=== PATIENT | male | born 1965 | race Caucasian/White ===

== ENCOUNTER 2021-11-15 07:13 | Outpatient (REF) | payer BC, SELFPAY ==
[2021-11-15 11:21] LABS: Appearance Urine Clear; Color Urine Yellow; Glucose Urine UA Negative (Negative); Leukocyte Esterase Urine Negative (Negative); Nitrite Urine Negative (Negative); Urine Blood Negative (Negative); Urine Ketones Negative (Negative); Urine Protein Negative (Neg-Trace)
[2021-11-15 12:07] LABS: Alanine Aminotransferase 23 U/L (0-40); Albumin Level 4.2 g/dL (3.5-5.0); Alkaline Phosphatase 47 U/L (39-117); Anion Gap 14 (12-20); Aspartate Amino Transferase 19 U/L (5-37); Bilirubin Total 1.2 mg/dL (0.0-1.0); Blood Urea Nitrogen 19 mg/dL (9-16); Calcium 8.9 mg/dL (8.4-10.2); Carbon Dioxide 23 mmol/L (22-29); Chloride 107 mmol/L (96-108); Cholesterol 201 mg/dL; Estimated Glomerular Filt Rate > 60; Glucose Fasting 113 mg/dL (60-99); HDL Cholesterol 60 mg/dL; LDL Cholesterol Calculated 128 mg/dl; Potassium 4.5 mmol/L (3.3-5.1); Sodium 139 mmol/L (135-145); Total Protein 6.7 g/dL (6.5-8.0); Triglycerides 67 mg/dL
[2021-11-15 12:13] LABS: Prostate Specific Antigen Scr 0.19 ng/mL (<0.05-4.0)
== END 2021-11-15 07:14 | disposition home or self-care (01) ==
LOC: HO.WFDLDS 07:13
PROVIDERS: Visit Provider Family Medicine
DX: Z00.00 Encounter for general adult medical examination without abnormal findings (principal); Z12.5 Encounter for screening for malignant neoplasm of prostate
CPT/HCPCS: 36415; 80053; 80061; 81003; 84153; 84443

== ENCOUNTER 2023-07-09 15:15 | Outpatient (AMB) | payer BC, SELFPAY ==
--- NOTE | 2023-07-09 15:18 | A.OFFPC_ITS ---
Vital Signs 07/09/23 15:22 Height 6 ft Weight 258 lb 6 oz BMI 35.0 BP 120/70 Blood Pressure Location Lt brachial Position Sitting Pulse 82 Pulse Source Pulse Oximeter Pulse Oximetry (%) 96 Oxygen Delivery Method Room Air Intake Visit Reasons: F/U HTN Intake Note: Patient is here to follow up on hypertension, and ringing in his ears, left ear feels blocked. Allergies No Known Allergies Allergy (Verified 07/09/23 15:23) Tobacco use date assessed: 07/09/23 Dental Screening Dental Screen Date: 07/09/23 Did you have a dental visit in the last 12 months?: No Did you have a dental problem in the last 6 months where you did not have access to dental care?: No Was dental information given to patient?: Patient declined HPI F/U HTN HPI Details 58 y/o male presents to f/u hypertension . Blood pressure today is 120/70. He is on lisinopril 10mg, HCTZ 25mg daily. Pt notes he continues to take sertraline 100mg for his mood. Pt reports increased anxiety. Pt reports L ear discomfort. PFSH Surgical History History of dental surgery Social History Housing: House Alcohol intake: current Alcohol intake frequency: a few times a week Patient Tobacco Use Status: Never used Tobacco e-Cigarette/Vaping Use: Never Used Second Hand Smoke Exposure: No service: No Current occupational status: employed Current occupational exposures/hazards: No Cognitive needs: No Hearing needs: No Vision needs: Yes (reading glasses) Questionnaire Thrive Questionnaire Date Thrive assessed: 03/20/22 LESTER-7 AMB Questionnaire LESTER-7 Date LESTER - 7 assessed: 03/20/22 Source: Developed by Drs. Javier Orozco, Kati Trevizo, Alonzo Wilkerson and colleagues, with an educational fab from [employer]. Review of Systems Const Denies chills, Denies fatigue, Denies fever(s), Denies headache(s) and Denies weakness ENT Denies dizziness and Denies headache(s) Card Denies dyspnea Resp Denies cough, Denies dyspnea, Denies wheezing and Denies other (shortness of breath) Musc Denies numbness and Denies tingling Neuro Denies dizziness, Denies headache(s), Denies numbness, Denies tingling and Den ies weakness Psych Reports anxiety and Denies depression Endo Denies fatigue Aller/Immun Denies wheezing Physical exam (Primary Care) Vital Signs: Last Vital Signs Pulse 82 07/09/23 15:22 BP 120/70 07/09/23 15:22 Pulse Ox 96 07/09/23 15:22 Oxygen Delivery Method Room Air 07/09/23 15:22 BMI result Body Mass Index 35.0 Tobacco/Smoking Status: Tobacco use Status Tobacco use date assessed 07/09/23 07/09/23 15:27 Patient Tobacco Use Status Never used Tobacco 07/09/23 15:18 e-Cigarette/Vaping Use Never Used 07/09/23 15:18 Thrive Assessment: Date of Thrive Assessment Date Thrive assessed 03/20/22 07/09/23 15:18 Const General: well developed; No acute distress Nutritional Appearance: well nourished Orientation/consciousness: patient oriented x3 HENMT Head: Yes normocephalic and Yes atraumatic Eyes General: appearance normal, both eyes and all related structures Pupils: Equal, round and reactive pupils present EOM: EOMs intact bilaterally Resp Effort & Inspection: normal respiratory effort Neuro General: patient oriented x3 and gait normal Cranial nerves: Yes Equal, round and reactive pupils present Psych Affect: normal affect Assessment and Plan Assessment & Plan (1) Hypertension: Code(s): I10 - Essential (primary) hypertension Plan: Blood?pressure?is?controlled.??Goal?is?less?than?140/90 Continue?current?medication (2) Left otitis media: Code(s): H66.92 - Otitis media, unspecified, left ear Plan: Start?amoxicillin (3) Anxiety: Code(s): F41.9 - Anxiety disorder, unspecified Plan: Worsened?lately.??Had?been?controlled?on?sertraline?100?mg?daily?and?he?is?still ?taking?this. Will?increase?sertraline?to?150?mg?daily (4) Right ear impacted cerumen: Code(s): H61.21 - Impacted cerumen, right ear Plan: Can?use?Debrox?drops Orders: Orders Comprehensive [place]. Panel Fast Today Z00.00 - Encounter for general adult medical examination without abnormal findings Prostate Specific Antigen Scr Today Z12.5 - Encounter for screening for malignant neoplasm of prostate TSH reflex Free T4 Today Z00.00 - Encounter for general adult medical examination without abnormal findings Complete Blood Count Auto Diff Today Z00.00 - Encounter for general adult medical examination without abnormal findings Lipid Panel Today Z00.00 - Encounter for general adult medical examination without abnormal findings Microalbumin, Random (w Creat) Today I10 - Essential (primary) hypertension UA and rflx microscopic Today Z00.00 - Encounter for general adult medical examination without abnormal findings Hemoglobin A1c Today R73.01 - Impaired fasting glucose Medications: New amoxicillin 500 mg PO Q12H 10 days 20 tabs 0RF carbamide peroxide 6.5% (Debrox) 5 drps otic (ear) right Q12H 4 days 15 mL 0RF Changed From sertraline 100 mg PO DAILY 30 days 30 tabs 1RF To sertraline 150 mg (1.5 x 100 mg) PO DAILY 30 days 45 tabs 1RF Coding Level of Care Code Est Pt Level 3 (74098) Diagnoses Hypertension I10 Left otitis media H66.92 Anxiety F41.9 Right ear impacted cerumen H61.21
[2023-07-09 15:22] VITALS: BP 120/70; PULSE 82; O2SAT 96; BMI 35.0
== END 2023-07-09 16:42 | disposition home or self-care (01) ==
PROVIDERS: PCP Family Medicine; Visit Provider Family Medicine
DX: I10 Essential (primary) hypertension (principal); H66.92 Otitis media, unspecified, left ear; F41.9 Anxiety disorder, unspecified; H61.21 Impacted cerumen, right ear
CPT/HCPCS: 99214

== ENCOUNTER 2024-08-17 13:45 | Outpatient (AMB) | payer BC, SELFPAY ==
--- NOTE | 2024-08-17 13:48 | A.OFFPC_ITS ---
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 Allergies No Known Allergies Allergy (Verified 08/17/24 13:53) Medication List - Last Reconciled 08/17/24 by Amie Aquino PA-C hydrochlorothiazide 25 mg PO DAILY 30 days lisinopril 10 mg PO DAILY sertraline 150 mg (1.5 x 100 mg) PO DAILY 30 days Tobacco use date assessed: 07/09/23 Dental Screening Dental Screen Date: 08/17/24 Did you have a dental visit in the last 12 months?: No Did you have a dental problem in the last 6 months where you did not have access to dental care?: No Was dental information given to patient?: Patient has dentist HPI CPE HPI Details Patient is a 59-year-old male with a significant past medical history urinary frequency, anxiety, impaired fasting glucose, hypertension presenting today for a physical exam. He normally follows with Dr. Pierre. He does have a few concerns today. CV: Blood pressure today in the office is 138/98. Denies any chest pain or shortness on breath. He is supposed to be taking lisinopril 10 mg and hydrochlorothiazide 25 mg daily. He says recently he ran into issues where he was not able to be on both medications until today. He states his blood pressures have always been normal while taking this regimen. -he states that he does have a concerned because he has had 2 episodes of syncope since February. He states that the 1st episode he was sick and had some sort of chest cold. He he says that he got up off the couch and then just lost consciousness. He woke up a few minutes later on the floor. He did not go to the hospital. He did hit his head. This was not witnessed. Denies any incontinence with this. He states that he assume that this was just related to being sick but then it happened again a couple of months ago. He states that he was in [place] at a golf [place] when he felt a little weird all day. He states that he just felt off. He walked to the parking lot and collapsed in the parking lot. He states that he was again unconscious for a short time and he did have an EKG and went to the hospital. He was not admitted. He states that they did labs and told him that it was likely related to dehydration. He had drank a few beers that day but did not think he was particularly dehydrated. He has not had any reoccurrence of symptoms. He states both times he felt that he did not have many prodromal symptoms to this. He says it happened pretty quickly. No palpitations, chest pain or shortness on breath with it. No nausea or diaphoresis until afterwards. He says that he does sometimes get palpitations but it is usually related to caffeine intake. He states he does have a family history of heart disease with his mother. Psych: He is currently on sertraline 150 mg daily. States that it is 4 anxiety and he just does not feel like it is effective. He states that he constantly worries and thinks about things. He denies any SI/HI. No recent big changes. Previously tried citalopram which was also ineffective. Derm: He has noticed a couple new brown spots on his face and would like to see Dermatology. Colonoscopy: never had, does not want this but would be open to a colonoscopy. PSA: Overdue [facility] Surgical History History of dental surgery Social History (Updated 08/17/24 @ 14:00 by Chiqui Wooten CMA) Housing: House Alcohol intake: current Alcohol intake frequency: a few times a week Patient Tobacco Use Status: Former Tobacco user Cigarettes Per Day: 3 Years Smoked: 2 e-Cigarette/Vaping Use: Never Used Second Hand Smoke Exposure: No service: No Current occupational status: employed Current occupation: wedding planner Current occupational exposures/hazards: No Cognitive needs: No Hearing needs: No Vision needs: Yes (reading glasses) Questionnaire PHQ-9 Over the last 2 weeks, how often have you been bothered by any of the following problems? 1. Little interest or pleasure in doing things: not at all 2. Feeling down, depressed, or hopeless: not at all 3. Trouble falling or staying asleep, or sleeping too much: not at all 4. Feeling tired or having little energy: more than half the days 5. Poor appetite or overeating: more than half the days 6. Feeling bad about yourself - or that you are a failure or have let yourself or your family down: more than half the days 7. Trouble concentrating on things, such as reading the newspaper or watching television: not at all 8. Moving or speaking so slowly that other people could have noticed. Or the opposite - being so fidgety or restless that you have been moving around a lot more than usual: not at all 9. Thoughts that you would be better off or of hurting yourself in some way: not at all Total score: 6 Depression Screening Interpretation: Positive Depression Screening Follow-up: In treatment and New Medication prescribed Depression Screening Done: Yes 83916 - PHQ-9 Billing: Yes Source: Developed by Drs. Javier Orozco, Kati Trevizo, Alonzo Wilkerson and colleagues, with an educational fab from [employer]. Thrive Questionnaire Date Thrive assessed: 08/17/24 I am a: Patient What is your living situation today?: I have a steady place to live Within the past 12 months, did the food you bought not last and you didn't have the money to get more?: Often true Within the past 12 months, did you worry whether your food would run out before you got money to buy more?: Never true Do you have trouble paying for medicines?: No Do you have trouble getting transportation to medical appointments?: No Do you have trouble paying your heating and electricity bill?: No Do you have trouble taking care of your child, family member or friend?: No Do you have trouble with day-to-day activities such as bathing, preparing meals, shopping, managing finances, etc.?: No Are you currently unemployed and looking for a job?: No Are you interested in more education?: No Please select the resources that you would like help with: None Currently or been in a relationship where the following occur: No concerns reported THRIVE Score: 1 AUDIT C Alcohol Use Questionnaire (AUDIT-C) 1. How often do you have a drink containing alcohol?: 4 or more times a week 2. How many drinks containing alcohol do you have on a typical day when you are drinking?: 3 or 4 3. How often do you have six or more drinks on one occasion?: Less than monthly Total Score: 6 LESTER-7 AMB Questionnaire LESTER-7 Date LESTER - 7 assessed: 08/17/24 Feeling nervous, anxious, or on edge: 2 = More than half the days Not being able to stop or control worryin = Not at all Worrying too much about different things: 1 = Several days Trouble relaxin = Not at all Being so restless that it is hard to sit still: 0 = Not at all Becoming easily annoyed or irritable: 0 = Not at all Feeling afraid as if something awful might happen: 0 = Not at all Total LESTER-7 score (0-4 normal; 5-9 mild; 10-14 moderate; 15-21 severe): 3 Source: Developed by Drs. Javier Orozco, Kati Trevizo, Alonzo Wilkerson and colleagues, with an educational fab from [employer]. LESTER-7 Assessment Billing LESTER-7 Assessment Tool: LESTER-7 Assessment 01320 Physical exam (Primary Care) Vital Signs: Last Vital Signs Pulse 66 08/17/24 13:55 Resp 16 08/17/24 13:55 BP 138/98 H 08/17/24 14:01 Pulse Ox 94 08/17/24 13:55 Oxygen Delivery Method Room Air 08/17/24 13:55 BMI result Body Mass Index 35.4 Tobacco/Smoking Status: Tobacco use Status Tobacco use date assessed 07/09/23 08/17/24 13:49 Patient Tobacco Use Status Former Tobacco user 08/17/24 14:00 e-Cigarette/Vaping Use Never Used 08/17/24 14:00 PHQ-9: PHQ-9 Score PHQ-9: Total score 6 08/17/24 14:00 Depression Screening Interpretation: Positive Depression Screening Follow-up: In treatment and New Medication prescribed Thrive Assessment: Date of Thrive Assessment Date Thrive assessed 08/17/24 08/17/24 14:00 Currently or been in a relationship where the following occur: No concerns repo rted Const Orientation/consciousness: patient oriented x3 HENMT Ears: hearing grossly normal bilaterally and TM's normal bilaterally General nose exam: No nasal polyps present Face and sinus: Yes sinuses nontender Mouth: Normal oral and palatal mucosa present Eyes Pupils: Equal, round and reactive pupils present EOM: EOMs intact bilaterally Neck Neck: Yes full ROM and Yes no lymphadenopathy Thyroid: Thyroid normal Chest Chest palpation & inspection: normal inspection of the chest Resp Auscultation: clear to auscultation bilaterally Cardio Rate: regular rate Rhythm: regular rhythm Heart sounds: S1 normal heart sound present and S2 normal heart sound present Peripheral pulses: Peripheral pulses 2+ throughout GI Other: Soft, nontender Auscultation: normal bowel sounds Rectal Exam - Male: Yes deferred General: Yes no CVA tenderness Back/Spine/Pelvis Other: Nontender Back: no CVA tenderness Skin General skin exam: no rashes or lesions noted Neuro General: patient oriented x3, gait normal, CN's II-XI intact bilaterally and deep tendon reflexes 2+ bilaterally Cranial nerves: Yes Equal, round and reactive pupils present Motor exam (neuro): 5/5 motor strength present throughout Sensory Exam: double simultaneous stimulation for sensation normal Coordination: [id number] test normal and Romberg test negative Extrem General: Yes normal to inspection and Yes full ROM Psych Affect: normal affect Attitude: cooperative Thought process: Normal thought process present Thought content: Normal thought content present Insight: Good insight present (Psych) Judgement: Good judgement present (Psych) Office Procedures EKG Details: EKG today in office is normal sinus rhythm at a rate of 65 beats per minute with nonspecific STT wave abnormalities. No prior study to compare. EKG interpreted by myself and Dr. Michaud. [id number], Complete Coding Level of Care Code Est Pt Level 3 (48678) Est Pt Prev Care 40-64y(92264) Diagnoses Routine general medical examination at a health care facility Z00.00 Facial lesion L98.9 Syncope and collapse R55 Hypertension I10 Anxiety F41.9 CPT Codes EKG - CPT: 51400-[id number], Complete ([id number]) Additional Codes LESTER-7 Assessment Billing - LESTER-7 Assessment Tool: LESTER-7 Assessment 31348 ([id number]) PHQ-9 - 39730 - PHQ-9 Billing: Yes ([id number]) Assessment & Plan Assessment & Plan (1) Routine general medical examination at a health care facility: Code(s): Z00.00 - Encounter for general adult medical examination without abnormal findings Plan: Health maintenance reviewed. Labs ordered today. Cologuard ordered. (2) Facial lesion: Code(s): L98.9 - Disorder of the skin and subcutaneous tissue, unspecified Category: Medical Plan: Referral to [facility] (3) Syncope and collapse: Code(s): R55 - Syncope and collapse Category: Medical Plan: EKG today in the office is normal sinus rhythm at a rate of 65 beats per minute with nonspecific STT wave abnormalities. No prior study to compare. EKG interpreted myself. Holter monitor and echo ordered. Carotid ultrasound ordered. We will follow up pending test results. Labs ordered. Offered referral to Cardiology but wants to wait until part of the workup is done. (4) Hypertension: Code(s): I10 - Essential (primary) hypertension Category: Medical Plan: Elevated today. Return in 2 weeks for recheck once he is taking both medications. (5) Anxiety: Code(s): F41.9 - Anxiety disorder, unspecified Category: Medical Plan: We will start BuSpar. Discussed risks and benefits and adverse effects of this medication. Reduce the sertraline to 100 mg. Orders: Orders Hemoglobin A1c Today F41.9 - Anxiety disorder, unspecified, I10 - Essential (primary) hypertension, L98.9 - Disorder of the skin and subcutaneous tissue, unspecified, R55 - Syncope and collapse, R73.01 - Impaired fasting glucose TSH reflex Free T4 Today F41.9 - Anxiety disorder, unspecified, I10 - Essential (primary) hypertension, L98.9 - Disorder of the skin and subcutaneous tissue, unspecified, R55 - Syncope and collapse UA CC w/rflx Micro + Cult Today F41.9 - Anxiety disorder, unspecified, I10 - Essential (primary) hypertension, L98.9 - Disorder of the skin and subcutaneous tissue, unspecified, R55 - Syncope and collapse, Z13.220 - Encounter for screening for lipoid disorders US carotid duplex BI Today I10 - Essential (primary) hypertension, R00.2 - Palpitations, R55 - Syncope and collapse CA echo transthoracic complete Today I10 - Essential (primary) hypertension, R55 - Syncope and collapse ECG 14 day holter monitor Today R55 - Syncope and collapse AMB EKG-In Office Today R55 - Syncope and collapse, Z13.6 - Encounter for screening for cardiovascular disorders Complete Blood Count Auto Diff Today F41.9 - Anxiety disorder, unspecified, I10 - Essential (primary) hypertension, L98.9 - Disorder of the skin and subcutaneous tissue, unspecified, R55 - Syncope and collapse Comprehensive [place]. Panel Fast Today F41.9 - Anxiety disorder, unspecified, I10 - Essential (primary) hypertension, L98.9 - Disorder of the skin and subcutaneous tissue, unspecified, R55 - Syncope and collapse Lipid Panel Today F41.9 - Anxiety disorder, unspecified, I10 - Essential (primary) hypertension, L98.9 - Disorder of the skin and subcutaneous tissue, unspecified, R55 - Syncope and collapse Prostate Specific Antigen Scr Today F41.9 - Anxiety disorder, unspecified, I10 - Essential (primary) hypertension, L98.9 - Disorder of the skin and subcutaneous tissue, unspecified, R55 - Syncope and collapse, Z01.89 - Encounter for other specified special examinations Referrals Dermatology Referral L98.9 - Disorder of the skin and subcutaneous tissue, unspecified Cologuard Test Z12.11 - Encounter for screening for malignant neoplasm of colo n Medications: New buspirone 5 mg PO BID 60 tabs 2RF Changed From sertraline 150 mg (1.5 x 100 mg) PO DAILY 30 days 45 tabs 1RF To sertraline 100 mg PO DAILY 30 days 30 tabs 1RF
[2024-08-17 13:55] VITALS: BP 144/96; PULSE 66; RESP 16; O2SAT 94; BMI 35.4
[2024-08-17 14:01] VITALS: BP 138/98
== END 2024-08-17 15:13 | disposition home or self-care (01) ==
LOC: HO.HMCFM 13:46
PROVIDERS: PCP Family Medicine; Visit Provider Physician Assistant
DX: Z00.00 Encounter for general adult medical examination without abnormal findings (principal); L98.9 Disorder of the skin and subcutaneous tissue, unspecified; R55 Syncope and collapse; I10 Essential (primary) hypertension; F41.9 Anxiety disorder, unspecified

== ENCOUNTER → 2024-08-17 13:45 | Outpatient (BNVA) | payer BC, SELFPAY | PROVIDERS: PCP Family Medicine; Visit Provider Physician Assistant | DX: Z00.00 Encounter for general adult medical examination without abnormal findings (principal); R32 Unspecified urinary incontinence; F41.9 Anxiety disorder, unspecified; R73.01 Impaired fasting glucose; I10 Essential (primary) hypertension; L98.9 Disorder of the skin and subcutaneous tissue, unspecified; R55 Syncope and collapse | CPT/HCPCS: 93005; 96127 ==

== ENCOUNTER 2024-08-22 14:38 | Outpatient (REF) | payer BC, SELFPAY ==
[2024-08-22 17:38] LABS: MANUAL DIFF FLAG NO
[2024-08-22 17:49] LABS: Basophils Absolute Auto 0.1 X10*3/uL (0.0-0.2); Basophils Percent Auto 1.3 % (0-2); Eosinophils Absolute Auto 0.2 X10*3/uL (0.0-0.4); Hematocrit 45.9 % (42.0-52.0); Hemoglobin 16.1 g/dl (14.0-18.0); Imm Gran Abs Auto 0.01 X10*3/uL (0.00-0.03); Imm Gran Pct Auto 0.2 % (0.0-0.4); Lymphocytes Absolute Auto 1.9 X10*3/uL (1.2-4.9); Lymphocytes Percent Auto 29.6 % (20-40); Mean Corpuscular HGB Conc 35.1 g/dl (31.0-36.0); Mean Corpuscular Hemoglobin 29.8 pg (27.0-33.0); Mean Corpuscular Volume 84.8 fL (80.0-98.0); Mean Platelet Volume 11.6 fL (9.4-12.4); Monocytes Absolute Auto 0.6 X10*3/uL (0.1-1.2); Neutrophils Absolute Auto 3.6 x10*3/uL (2.0-8.3); Neutrophils Percent Auto 56.9 % (45-73); Platelet Count 186 X10*3/uL (160-400); Red Blood Count 5.41 X10*6/uL (4.60-5.80); Red Cell Distribution Width 12.1 % (11.0-16.0); White Blood Count 6.3 X10*3/uL (4.8-10.8)
[2024-08-22 17:53] LABS: Appearance Urine Clear; Color Urine Yellow; Glucose Urine UA Negative (Negative); Leukocyte Esterase Urine Negative (Negative); Nitrite Urine Negative (Negative); PH 7.5 (5.0-9.0); Specific Gravity - Urine 1.015 (1.005-1.025); Urine Blood Negative (Negative); Urine Ketones Negative (Negative); Urine Protein Negative (Neg-Trace)
[2024-08-22 18:13] LABS: Alanine Aminotransferase 32 U/L (0-40); Albumin Level 4.7 g/dL (3.5-5.0); Alkaline Phosphatase 47 U/L (39-117); Anion Gap 11 (12-20); Aspartate Amino Transferase 27 U/L (5-37); Bilirubin Total 1.6 mg/dL (0.0-1.0); Blood Urea Nitrogen 14 mg/dL (9-16); Calcium 9.2 mg/dL (8.4-10.2); Carbon Dioxide 27 mmol/L (22-29); Chloride 103 mmol/L (96-108); Cholesterol 232 mg/dL (<200); Estimated Glomerular Filt Rate > 60; Glucose Fasting 89 mg/dL (60-99); HDL Cholesterol 56 mg/dL (>40); LDL Cholesterol Calculated 153 mg/dL (<100); Potassium 3.7 mmol/L (3.3-5.1); Sodium 137 mmol/L (135-145); Total Protein 7.4 g/dL (6.5-8.0); Triglycerides 115 mg/dL (<150)
[2024-08-22 18:16] LABS: TSH reflex Free T4 1.71 uIU/mL (0.32-4.0)
[2024-08-22 18:17] LABS: Prostate Specific Antigen Scr 0.27 ng/mL (<0.05-4.0)
[2024-08-23 07:07] LABS: Estimated Average Glucose 111 mg/dL; Hemoglobin A1c % 5.5 % (<6.0)
== END 2024-08-22 14:39 | disposition home or self-care (01) ==
LOC: HO.WFDLDS 14:38
PROVIDERS: Visit Provider Physician Assistant
DX: Z01.89 Encounter for other specified special examinations (principal); R73.01 Impaired fasting glucose; Z13.220 Encounter for screening for lipoid disorders; F41.9 Anxiety disorder, unspecified; L98.9 Disorder of the skin and subcutaneous tissue, unspecified; R55 Syncope and collapse; I10 Essential (primary) hypertension; Z12.5 Encounter for screening for malignant neoplasm of prostate
CPT/HCPCS: 36415; 80053; 80061; 81003; 83036; 84153; 84443; 85025

== ENCOUNTER 2024-09-01 14:38 | Outpatient (AMB) | payer BC, SELFPAY ==
[2024-09-01 14:53] VITALS: BP 136/96; PULSE 71; RESP 16; TEMP 36.6; O2SAT 94; BMI 34.9
--- NOTE | 2024-09-01 14:53 | A.OFFPC_ITS ---
Vital Signs 09/01/24 14:53 09/01/24 15:05 Height 6 ft Weight 257 lb BMI 34.9 BP 136/96 H 130/88 Blood Pressure Location Lt brachial Lt brachial Position Sitting Sitting Respiration 16 Pulse 71 Pulse Source Pulse Oximeter Temp 97.9 F Temp Source Oral Pulse Oximetry (%) 94 Oxygen Delivery Method Room Air Intake Visit Reasons: bp and labs Intake Note: Follow up blood pressure, labs results Air Marshal Required: No Allergies No Known Allergies Allergy (Verified 09/01/24 14:54) Tobacco use date assessed: 09/01/24 Dental Screening Dental Screen Date: 08/17/24 HPI bp and labs HPI Details Patient is a 59-year-old male with a significant past medical history urinary frequency, anxiety, impaired fasting glucose, hypertension presenting today for a followup. He normally follows with Dr. Pierre. CV: Blood pressure today in the office is 130/88. Recently has been more consistent with hydrochlorothiazide 25 mg and lisinopril 10 mg. -he Is scheduled in the next couple luli lianna for his cardiac testing. He states he does have a family history of heart disease with his mother. Psych: He had a med change at our last visit in his currently on sertraline 100 mg daily and buspirone 5 mg twice a day. He finds that the buspirone is drying him out and he also feels that the medication combination is making him more irritable. He has not noticed a change in his anxiety. He denies any SI/HI. No recent big changes. Previously tried citalopram which was also ineffective. [facility] Surgical History History of dental surgery Social History (Updated 08/17/24 @ 14:00 by Chiqui Wooten CMA) Housing: House Alcohol intake: current Alcohol intake frequency: a few times a week Patient Tobacco Use Status: Former Tobacco user Cigarettes Per Day: 3 Years Smoked: 2 e-Cigarette/Vaping Use: Never Used Second Hand Smoke Exposure: No service: No Current occupational status: employed Current occupation: transportation manager Current occupational exposures/hazards: No Cognitive needs: No Hearing needs: No Vision needs: Yes (reading glasses) Questionnaire Thrive Questionnaire Date Thrive assessed: 08/17/24 I am a: Patient What is your living situation today?: I have a steady place to live Within the past 12 months, did the food you bought not last and you didn't have the money to get more?: Often true Within the past 12 months, did you worry whether your food would run out before you got money to buy more?: Never true Do you have trouble paying for medicines?: No Do you have trouble getting transportation to medical appointments?: No Do you have trouble paying your heating and electricity bill?: No Do you have trouble taking care of your child, family member or friend?: No Do you have trouble with day-to-day activities such as bathing, preparing meals, shopping, managing finances, etc.?: No Are you currently unemployed and looking for a job?: No Are you interested in more education?: No Please select the resources that you would like help with: None Currently or been in a relationship where the following occur: No concerns reported THRIVE Score: 1 AUDIT C Alcohol Use Questionnaire (AUDIT-C) 1. How often do you have a drink containing alcohol?: 4 or more times a week 2. How many drinks containing alcohol do you have on a typical day when you are drinking?: 1 or 2 3. How often do you have six or more drinks on one occasion?: Never Total Score: 4 LESTER-7 AMB Questionnaire LESTER-7 Date LESTER - 7 assessed: 08/17/24 Source: Developed by Drs. Javier Orozco, Kati Trevizo, Alonzo Wilkerson and colleagues, with an educational fab from [employer]. Physical exam (Primary Care) Vital Signs: Last Vital Signs Temp 97.9 F 09/01/24 14:53 Pulse 71 09/01/24 14:53 Resp 16 09/01/24 14:53 BP 130/88 09/01/24 15:05 Pulse Ox 94 09/01/24 14:53 Oxygen Delivery Method Room Air 09/01/24 14:53 BMI result Body Mass Index 34.9 Tobacco/Smoking Status: Tobacco use Status Tobacco use date assessed 09/01/24 09/01/24 14:59 Patient Tobacco Use Status Former Tobacco user 09/01/24 14:59 e-Cigarette/Vaping Use Never Used 09/01/24 14:59 Thrive Assessment: Date of Thrive Assessment Date Thrive assessed 06/04/25 06/19/25 14:59 Currently or been in a relationship where the following occur: No concerns reported Const Orientation/consciousness: patient oriented x3 HENMT Ears: hearing grossly normal bilaterally Neck Thyroid: Thyroid normal Lymphatic: no lymphadenopathy noted Resp Auscultation: clear to auscultation bilaterally Cardio Rate: regular rate Rhythm: regular rhythm Heart sounds: S1 normal heart sound present and S2 normal heart sound present GI Inspection: Yes normal to inspection Palpation (GI): Soft to palpation and Other GI palpation findings present (nontender, no cva tenderness) Auscultation: normoactive bowel sounds Rectal Exam - Male: Yes deferred Skin General skin exam: no rashes or lesions noted Neuro General: patient oriented x3, gait normal and no focal motor deficits Results Reviewed Results Reviewed: Laboratory Tests 08/22/24 14:41 WBC 6.3 RBC 5.41 Hgb 16.1 Hct 45.9 Plt Count 186 Sodium 137 Potassium 3.7 Chloride 103 Carbon Dioxide 27 Anion Gap 11 L BUN 14 Creatinine 1.05 Estimated GFR > 60 Fasting Glucose 89 Hemoglobin A1c % 5.5 Calcium 9.2 Total Bilirubin 1.6 H AST 27 ALT 32 Alkaline Phosphatase 47 Total Protein 7.4 Albumin 4.7 Triglycerides 115 Cholesterol 232 H LDL Cholesterol, Calc 153 H HDL Cholesterol 56 PSA Screen 0.27 TSH 1.71 Coding Level of Care Code Est Pt Level 4 (40495) Complex EM visit Add On G2211 Diagnoses Hypertension I10 Anxiety F41.9 Elevated bilirubin R17 Dyslipidemia E78.5 Fatigue R53.83 Assessment & Plan Assessment & Plan (1) Hypertension: Code(s): I10 - Essential (primary) hypertension Category: Medical Plan: Increase lisinopril to 20 mg. Continue with the hydrochlorothiazide 25 mg. Has a cuff at home with his daughter. Advised to monitor blood pressures. Return in 4-6 weeks to be reassessed. Labs prior to appointment. (2) Anxiety: Code(s): F41.9 - Anxiety disorder, unspecified Category: Medical Plan: We will try Lexapro. Discussed risks and benefits and adverse effects of this medication. (3) Elevated bilirubin: Code(s): R17 - Unspecified jaundice Category: Medical Plan: We will recheck prior to next appointment. Ultrasound ordered. (4) Dyslipidemia: Code(s): E78.5 - Hyperlipidemia, unspecified Category: Medical Plan: Discussed diet changes. We will monitor. (5) Fatigue: Code(s): R53.83 - Other fatigue Plan: Sleep study ordered. Orders: Orders Basic Metabolic Panel Today F41.9 - Anxiety disorder, unspecified, I10 - Essential (primary) hypertension, R17 - Unspecified jaundice RT home sleep study 09/01/24 R06.81 - Apnea, not elsewhere classified Liver Panel Today F41.9 - Anxiety disorder, unspecified, I10 - Essential (primary) hypertension, R17 - Unspecified jaundice Complete Blood Count Auto Diff Today F41.9 - Anxiety disorder, unspecified, I10 - Essential (primary) hypertension, R17 - Unspecified jaundice Medications: New lisinopril 20 mg PO DAILY 90 tabs 2RF escitalopram oxalate (Lexapro) 10 mg PO DAILY 30 tabs 3RF Discontinued sertraline Discontinued Reason: Doctor's Order 100 mg PO DAILY 30 days 30 tabs 1RF lisinopril Discontinued Reason: Doctor's Order 10 mg PO DAILY 30 tabs 0RF buspirone Discontinued Reason: Doctor's Order 5 mg PO BID 60 tabs 2RF
[2024-09-01 15:05] VITALS: BP 130/88
== END 2024-09-01 15:33 | disposition home or self-care (01) ==
LOC: HO.HMCFM 14:39
PROVIDERS: PCP Family Medicine; Visit Provider Physician Assistant
DX: I10 Essential (primary) hypertension (principal); F41.9 Anxiety disorder, unspecified; R17 Unspecified jaundice; E78.5 Hyperlipidemia, unspecified; R53.83 Other fatigue

== ENCOUNTER → 2024-09-01 14:38 | Outpatient (BNVA) | payer BC, SELFPAY | PROVIDERS: PCP Family Medicine; Visit Provider Physician Assistant ==

== ENCOUNTER → 2024-10-03 13:31 | Outpatient (REF) | payer BC, SELFPAY ==
--- NOTE | 2024-10-03 13:34 | CA_ITS ---
Transthoracic Echocardiogram Patient (Last, First, Middle): Antwan Delgado, Gender: Male Date of : 1965 Age: 59 Procedure Date: 10/03/2024 Procedure Type: Transthoracic Echocardiogram Location: OP Height: 182.88 cm Weight: 111.13 kg BSA: 2.32 m2 Heart Rate: bpm BP: 130 / 80 mmHg Proof Operator: STEPHANY Referring MD: Amie Aquino PA-C Symptoms: R55 - Syncope and collapse Study Quality: Adequate ECG Rhythm: Sinus Conclusions: - The left ventricular systolic function is normal. The visually estimated ejection fraction is between 55-60%. - No obvious valvular pathology seen on this study. Findings Left Ventricle Normal left ventricular cavity size. There is normal left ventricular wall thickness. The left ventricular systolic function is normal. The visually estimated ejection fraction is between 55-60%. There is no evidence of regional wall motion abnormalities. Diastolic function is normal for age. Right Ventricle Mildly increased right ventricular cavity size. There is normal right ventricular systolic function. Atria Both atria are normal in size. Aortic Valve There is a normal trileaflet aortic valve. There is mild calcification of the aortic valve. There is no aortic valve stenosis. There is no aortic valve regurgitation. Mitral Valve The mitral valve appears normal. There is no mitral valve regurgitation. There is no mitral valve stenosis. Pulmonic Valve There is trace pulmonic valve regurgitation. Tricuspid Valve Normal tricuspid valve structure. There is trace tricuspid valve regurgitation. There is no evidence of pulmonary hypertension. Great Vessels The asc aorta is normal in size. Venous The inferior vena cava is normal in size and collapses greater than 50% with inspiration. Pericardium/Pleural There is no evidence of pericardial effusion. Prior Study Comparison No prior study available for comparison. Recommendations, Care & Conclusions No obvious valvular pathology seen on this study. Measurements 2D Linear Measurements IVSd: 1.17 0.6-0.9/0.6-1.0 cm LVIDd: 5.09 3.9-5.3/4.2-5.9 cm LVIDd Index: 2.19 2.4-3.2/2.2-3.1 cm/m2 LVIDs: 3.08 2.0-3.6 cm LVPWd: 1.00 0.7-1.1 cm LA Diam: 3.90 2.7-3.8/3.0-4.0 cm LAIDs Index: 1.68 1.5-2.3 cm/m2 LV Mass: 260.82 67-162/88-224 g LV Mass Index: 112.42 43-95/49-115 g/m2 LVOT Diam: 2.20 3.0+(-)1.3 cm 2D Systolic Function EF 4C: 57.50 >55% EF 2C: 54.10 >55% Mitral Valve MV Pk E: 0.49 MV PK A: 0.53 MV Decel Time: 248.00 E/A: 0.90 E'Lateral: 7.07 E'Medial: 5.44 E/E' Med: 9.00 E/E' Lat: 6.90 PHT: 73.00 MVA PHT: 3.01 Decel Dane: 1.97 Aortic Valve AoV Pk Torsten: 1.34 AoV Mn Torsten: 0.89 AoV VTI: 0.25 AoV Pk Grad: 7.00 Aov Mn Grad: 4.00 LUPILLO Cont.VTI: 3.12 LVOT LVOT Pk Torsten: 1.10 LVOT Mn Torsten: 0.69 LVOT VTI: 0.20 LVOT Pk Grad: 5.00 LVOT Mn Grad: 2.00 LVOT Diam: 2.20 LVOT Area: 3.80 Diastolic Function MV Pk E: 0.49 MV Pk A: 0.53 E/A: 0.90 E'Medial: 5.44 E/E' Med: 9.00 E' Laterial: 7.07 E/E' Lat: 6.90 Right Ventricle TAPSE (mm): 29.50 TVS' Torsten: 15.30 Tricuspid Valve TR Pk Torsten: 1.96 TR Pk Grad: 15.00 RA Press: 3.00 RVSP: 18.00 Great Vessels Aorta Sinus of Valsalva: 3.47 2.0-3.5 cm Ao Asc: 3.90 2.1-3.4 cm Updated in Other Vendor System with Status of Final Logan Martinez MD electronically signed on 10/04/2024 9:54:57 AM with status of Final
== END ==
LOC: HO.CARD 13:31
PROVIDERS: PCP Family Medicine; Visit Provider Physician Assistant
DX: I10 Essential (primary) hypertension (principal); R55 Syncope and collapse
CPT/HCPCS: 93246; 93306

== ENCOUNTER → 2024-10-03 13:34 | Outpatient (BNV) | payer BC, SELFPAY | PROVIDERS: PCP Family Medicine; Visit Provider Internal Medicine | DX: I35.8 Other nonrheumatic aortic valve disorders (principal) | CPT/HCPCS: 93306 ==

== ENCOUNTER 2024-10-20 08:22 | Outpatient (REF) | payer BC, SELFPAY ==
--- NOTE | ~2024-10-20 | US_ITS ---
CLINICAL HISTORY: R00.2 - Palpitations US bilateral carotid duplex Comparison: None provided Findings: No significant plaque within the common carotid arteries. No significant plaque within the carotid bulbs. Waveforms are normal morphology. Peak systolic velocities: Right CCA: 68 cm/s Right ICA: 93 cm/s ICA/CCA ratio: 0.68 Right ECA: Unremarkable Right vertebral and subclavian artery flow antegrade. Left CCA: 93 cm/s Left ICA: 105 cm/s ICA/CCA ratio: 0.73 Left ECA: Unremarkable Left vertebral and subclavian artery flow antegrade. Incidental note of the morphologically benign-appearing lymph node with preserved fatty hilum 1.3 x 0.5 x 1.0 cm near right carotid bulb. Impression: Normal carotid velocities, no significant stenosis (0-49% stenosis) This document has been electronically signed by: Nehal Huggins MD on 10/20/2024 14:52:06
--- NOTE | ~2024-10-20 | US_ITS ---
EXAMINATION: US ABDOMEN COMPLETE WITH LIVER ELASTOGRAPHY HISTORY: R79.89 - Other specified abnormal findings of blood chemistry TECHNIQUE: Real-time grayscale ultrasound imaging of the abdomen was performed and images were reviewed. COMPARISON: There are no prior studies available for comparison. FINDINGS: Liver: The right lobe of the liver measures 17.2 cm in size. The left lobe of the liver measures 10.4 cm in size. The liver demonstrates heterogeneously increased echotexture, consistent with steatosis. No focal mass or intrahepatic biliary ductal dilatation is identified. There is normal hepatopedal flow in the portal vein. Ultrasound elastography of the liver was performed with 10 separate measurements of the liver parenchyma with the patient in the supine position. Measurements were obtained approximately 2 cm below Todd's capsule and perpendicular to the capsule. The median shear wave velocity is 1.95 m/s. The interquartile range/median (IQR/median) is 0.09. Gallbladder and biliary tree: The gallbladder is unremarkable, without evidence of calculi, wall thickening, or pericholecystic fluid. There is no sonographic Talavera sign. The common bile duct is normal in caliber measuring 4 mm. Kidneys: The right kidney measures 10.7 cm in length. The left kidney measures 10.8 cm in length. The kidneys are unremarkable, without evidence of masses, hydronephrosis, or calculi. Pancreas: The pancreatic head, neck, and body are unremarkable. The pancreatic tail is obscured by bowel gas. Spleen: The spleen is normal in size and contour, measuring 16.4 cm in length. Abdominal aorta and inferior vena cava: The visualized portions of the abdominal aorta and inferior vena cava are normal in caliber. There is no free fluid in the abdomen. US/US abdomen comp w elastography IMPRESSION: Hepatosplenomegaly and hepatic steatosis. The median shear wave velocity in the liver is 1.95 m/s, corresponding to a median liver stiffness of 11.75 kPa. The IQR/median value is 0.09. This is indicative of a quality data set. Findings are indicative of a high elastography value suggestive of compensated advanced chronic liver disease. REFERENCE: Society of Radiologists in Ultrasound Liver Stiffness Thresholds (2020): LIVER STIFFNESS THRESHOLDS: *Shear wave velocity less than 1.3 m/s (Liver Stiffness equal or less than 5 kPa): High probability of being normal. *Shear wave velocity less than 1.7 m/s (Liver Stiffness less than 9 kPa): In the absence of other known clinical signs, rules out compensated advanced chronic liver disease. *Shear wave velocity between 1.7-2.1 m/s (Liver Stiffness 9-13 kPa): Suggestive of compensated advanced chronic liver disease but need further test for confirmation. *Shear wave velocity between 2.1-2.4 m/s (Liver Stiffness 13-17 kPa): Rules in compensated advanced chronic liver disease. *Shear wave velocity greater than 2.4 m/s (Liver Stiffness over 17 kPa): Suggestive of clinically significant portal hypertension. QUALITY OF DATA SET: *IQR/Median value equal or less than 0.15 implies a quality data set. *IQR/Median value over 0.15 implies a poor quality data set. SIGNIFICANT CHANGE FROM PRIOR EXAM: Significant change if liver stiffness measurement is 10% or greater from prior exam. OTHER CONSIDERATIONS: The stage of liver fibrosis may be overestimated in the setting of acute hepatitis, liver inflammation, elevated liver function tests, hepatic vascular congestion, obstructive cholestasis, non-fasting state, and infiltrative diseases such as amyloidosis and lymphoma. In some patients with NAFLD, the liver stiffness thresholds for compensated advanced chronic liver disease may be lower. In causes other than viral hepatitis and NAFLD, liver stiffness thresholds are not well established. Electronically signed by: Javier Babin MD 10/20/2024 10:18 AM EDT
--- OUTSIDE RECORDS SUMMARY | 2024-10-20 08:30 | XMS_ITS ---
Author Name [facility] Organization Unknown Care Team Organization Name Specialty Phone Email Start Date End Da te [facility] Termed, PROVIDER Primary Care 01/21/202210/14
== END 2024-10-20 08:23 | disposition home or self-care (01) ==
LOC: HO.US 08:22
PROVIDERS: PCP Family Medicine; Visit Provider Physician Assistant
DX: I10 Essential (primary) hypertension (principal); R55 Syncope and collapse; R79.89 Other specified abnormal findings of blood chemistry; R00.2 Palpitations
CPT/HCPCS: 76700; 76981; 93880

== ENCOUNTER → 2024-10-20 08:26 | Outpatient (BNV) | payer BC, SELFPAY | PROVIDERS: PCP Family Medicine; Visit Provider Radiology Diagnostic Radiology | DX: R16.2 Hepatomegaly with splenomegaly, not elsewhere classified (principal); R55 Syncope and collapse | CPT/HCPCS: 76700; 93880 ==

== ENCOUNTER 2024-10-26 14:16 | Outpatient (AMB) | payer BC, SELFPAY ==
--- NOTE | 2024-10-26 14:23 | A.OFFPC_ITS ---
Vital Signs 10/26/24 14:27 Height 6 ft Weight 259 lb 2 oz BMI 35.1 BP 114/82 Blood Pressure Location Rt brachial Position Sitting Respiration 16 Pulse 67 Pulse Source Pulse Oximeter Temp 97.4 F Temp Source Temporal Artery Scan Pulse Oximetry (%) 95 Oxygen Delivery Method Room Air Intake Visit Reasons: beto & f/u imaging, meds Intake Note: Antwan presents in the office today to follow up on imaging and medication. Allergies No Known Allergies Allergy (Verified 10/26/24 14:26) Medication List - Last Reconciled 10/26/24 by Amie Aquino PA-C hydrochlorothiazide 25 mg PO DAILY 30 days lisinopril 20 mg PO DAILY Tobacco use date assessed: 10/26/24 Dental Screening Dental Screen Date: 10/26/24 Did you have a dental visit in the last 12 months?: No Did you have a dental problem in the last 6 months where you did not have access to dental care?: No Was dental information given to patient?: Patient has dentist HPI beto & f/u imaging, meds HPI Details Patient is a 59-year-old male with a significant past medical history urinary frequency, anxiety, impaired fasting glucose, hypertension presenting today for a followup. He normally follows with Dr. Pierre. CV: Blood pressure today in the office is 114/82. He states he is doing well with the higher dose of lisinopril 20 mg. Compliant with the hydrochlorothiazide 25 mg. He states he does have a family history of heart disease with his mother. Psych: Feels that the Lexapro is ineffective. -previously tried sertraline, buspirone, citalopram which he felt ineffective.. [facility] Surgical History History of dental surgery Social History (Updated 10/26/24 @ 14:27 by So Hale MA) Housing: House Alcohol intake: current Alcohol intake frequency: a few times a week Patient Tobacco Use Status: Former Tobacco user Cigarettes Per Day: 3 Years Smoked: 2 e-Cigarette/Vaping Use: Never Used Second Hand Smoke Exposure: No Substance Use Type: Marijuana service: No Current occupational status: employed Current occupation: senior production planner Current occupational exposures/hazards: No Cognitive needs: No Hearing needs: No Vision needs: Yes (reading glasses) Questionnaire Thrive Questionnaire Date Thrive assessed: 08/17/24 I am a: Patient What is your living situation today?: I have a steady place to live Within the past 12 months, did the food you bought not last and you didn't have the money to get more?: Often true Within the past 12 months, did you worry whether your food would run out before you got money to buy more?: Never true Do you have trouble paying for medicines?: No Do you have trouble getting transportation to medical appointments?: No Do you have trouble paying your heating and electricity bill?: No Do you have trouble taking care of your child, family member or friend?: No Do you have trouble with day-to-day activities such as bathing, preparing meals, shopping, managing finances, etc.?: No Are you currently unemployed and looking for a job?: No Are you interested in more education?: No Please select the resources that you would like help with: None Currently or been in a relationship where the following occur: No concerns reported THRIVE Score: 1 LESTER-7 AMB Questionnaire LESTER-7 Date LESTER - 7 assessed: 08/17/24 Source: Developed by Drs. Javier Orozco, Kati Trevizo, Alonzo Wilkerson and colleagues, with an educational fab from [employer]. Physical exam (Primary Care) Vital Signs: Last Vital Signs Temp 97.4 F 10/26/24 14:27 Pulse 67 10/26/24 14:27 Resp 16 10/26/24 14:27 BP 114/82 10/26/24 14:27 Pulse Ox 95 10/26/24 14:27 Oxygen Delivery Method Room Air 10/26/24 14:27 BMI result Body Mass Index 35.1 Tobacco/Smoking Status: Tobacco use Status Tobacco use date assessed 10/26/24 10/26/24 14:30 Patient Tobacco Use Status Former Tobacco user 10/26/24 14:30 e-Cigarette/Vaping Use Never Used 10/26/24 14:30 Thrive Assessment: Date of Thrive Assessment Date Thrive assessed 08/17/24 10/26/24 14:30 Currently or been in a relationship where the following occur: No concerns reported Const Orientation/consciousness: patient oriented x3 HENMT Ears: hearing grossly normal bilaterally Neck Thyroid: Thyroid normal Lymphatic: no lymphadenopathy noted Resp Auscultation: clear to auscultation bilaterally Cardio Rate: regular rate Rhythm: regular rhythm Heart sounds: S1 normal heart sound present and S2 normal heart sound present GI Inspection: Yes normal to inspection Palpation (GI): Soft to palpation and Other GI palpation findings present (nontender, no cva tenderness) Auscultation: normoactive bowel sounds Rectal Exam - Male: Yes deferred Skin General skin exam: no rashes or lesions noted Neuro General: patient oriented x3, gait normal and no focal motor deficits Coding Level of Care Code Est Pt Level 4 (72414) Complex EM visit Add On G2211 Diagnoses Fatty liver K76.0 Splenomegaly R16.1 Hypertension I10 Anxiety F41.9 Assessment & Plan Assessment & Plan (1) Fatty liver: Code(s): K76.0 - Fatty (change of) liver, not elsewhere classified Category: Medical Plan: He is going to make diet and lifestyle modifications. We will monitor and recheck. (2) Splenomegaly: Code(s): R16.1 - Splenomegaly, not elsewhere classified Category: Medical Plan: As above. Does not wish for further workup. No constitutional symptoms. He will let me know if anything changes. We will check labs. (3) Hypertension: Code(s): I10 - Essential (primary) hypertension Category: Medical Plan: Better controlled. Continue current regimen (4) Anxiety: Code(s): F41.9 - Anxiety disorder, unspecified Category: Medical Plan: We will try Effexor. Discussed risks and benefits and adverse effects of the medication. Advised short term follow up to let me know how he is doing with this medication. Orders: Orders Basic Metabolic Panel Today K76.0 - Fatty (change of) liver, not elsewhere classified, R16.1 - Splenomegaly, not elsewhere classified, R17 - Unspecified jaundice US abdomen comp w elastography 6 Months K76.0 - Fatty (change of) liver, not elsewhere classified, R16.1 - Splenomegaly, not elsewhere classified, R17 - Unspecified jaundice Complete Blood Count Auto Diff Today K76.0 - Fatty (change of) liver, not elsewhere classified, R16.1 - Splenomegaly, not elsewhere classified, R17 - Unspecified jaundice Liver Panel Today K76.0 - Fatty (change of) liver, not elsewhere classified, R16.1 - Splenomegaly, not elsewhere classified, R17 - Unspecified jaundice Medications: New venlafaxine ER (Effexor XR) 37.5 mg PO BEDTIME 90 caps 0RF
[2024-10-26 14:27] VITALS: BP 114/82; PULSE 67; RESP 16; TEMP 36.3; O2SAT 95; BMI 35.1
== END 2024-10-26 16:22 | disposition home or self-care (01) ==
PROVIDERS: PCP Physician Assistant; Visit Provider Physician Assistant
DX: K76.0 Fatty (change of) liver, not elsewhere classified (principal); R16.1 Splenomegaly, not elsewhere classified; I10 Essential (primary) hypertension; F41.9 Anxiety disorder, unspecified